=== PATIENT | male | born 1955 | race Caucasian/White ===

== ENCOUNTER 2018-03-01 06:49 | Day surgery (SDC) | payer BC ==
[~2018-03-01] VITALS: Ht 167.6 cm; Wt 81.8 kg
[2018-03-01 07:35] VITALS: BP 123/87; PULSE 87; TEMP 98.1
[2018-03-01] MEDS ORDERED: ZOCOR 20MG20 MG PO (07:44)
[2018-03-01 09:05] VITALS: BP 118/87; PULSE 81; TEMP 98.7
[2018-03-01 09:20] VITALS: BP 115/76; PULSE 72
[2018-03-01 09:35] VITALS: BP 116/81; PULSE 70
== END 2018-03-01 09:59 | disposition home or self-care (01) ==
LOC: SDCO 06:49
DX: Z12.11 Encounter for screening for malignant neoplasm of colon (principal); D12.2 Benign neoplasm of ascending colon; D12.3 Benign neoplasm of transverse colon; E78.00 Pure hypercholesterolemia, unspecified; Z86.010 Personal history of colon polyps
CPT/HCPCS: J2250; J3010; J7030

== ENCOUNTER 2021-06-10 08:24 | Day surgery (SDC) | payer BC ==
[~2021-06-10] VITALS: Ht 167.6 cm; Wt 78.5 kg
[~2021-06-10 08:24] MED LIST: ZOCOR 20MG20 MG PO
[2021-06-10 09:13] VITALS: BP 138/93; PULSE 86; TEMP 97.7
[2021-06-10 10:15] VITALS: BP 113/88; PULSE 71; TEMP 97.7
--- NOTE | 2021-06-10 10:15 | NUR ---
Back from colonoscopy. Alert and oriented. Ambulated from cart to chair with steady gait and standby assist. VSS. Ordering a Sprite denies food at this time
[2021-06-10 10:30] VITALS: BP 130/81; PULSE 57; TEMP 97.7
--- NOTE | 2021-06-10 10:30 | NUR ---
Drinking Sprite. Denies nees at this time. VSS
[2021-06-10 10:45] VITALS: BP 134/77; PULSE 61; TEMP 97.7
[2021-06-10 11:05] VITALS: BP 123/96; PULSE 58; TEMP 97.7
--- NOTE | 2021-06-10 11:06 | NUR ---
Dr. cormier in to see pt. Went to restroom with steady gait. Getting dressed
== END 2021-06-10 12:57 | disposition home or self-care (01) ==
LOC: SDCO 08:24
DX: Z12.11 Encounter for screening for malignant neoplasm of colon (principal); E78.5 Hyperlipidemia, unspecified; Z86.010 Personal history of colon polyps; Z79.899 Other long term (current) drug therapy
CPT/HCPCS: J2704; J7120